=== PATIENT | female | born 1995 | race Caucasian/White ===

== ENCOUNTER 2018-08-25 16:37 | Emergency (ER) | payer OTHER ==
[2018-08-25] MEDS ORDERED: OXYMETAZOLINE 30 ML NASAL SPRAY EACHNARE ONE (17:09)
[2018-08-25] MEDS ORDERED: SILVER NITRATE APPLICATOR 1 APPL TP ONE (17:09)
[2018-08-25] MEDS ORDERED: LET GEL TOPICAL 1 EA SYR TP ONE (17:09)
--- NOTE | 2018-08-25 17:11 | EDPHY ---
H & P Time Seen by Provider: 08/25/18 16:55 HPI/ROS: CHIEF COMPLAINT: Recurrent epistaxis right-sided HISTORY OF PRESENT ILLNESS: 22-year-old otherwise healthy female, no vasculopathy history, history of recurrent epistaxis, in the ER complaining of recurrent epistaxis right side today, currently hemostatic. No dizziness. No fever no chills. No digital trauma. No unusual bleeding, bruising, no gingival bleeding. PHYSICAL EXAM (Prior to examination, patient consented to physical exam, hands were washed and my usual and customary physical exam procedures followed) 1) GENERAL: Well-developed, well-nourished, alert and oriented. Appears to be in no acute distress. 2) HEAD: Normocephalic 3) HEENT: sclera anicteric. Area of friability right Kiesselbach's plexus noted. Left side clear. 4) LUNGS: Breathing comfortably. [ Smoking Status: Never smoked Constitutional: Initial Vital Signs Temperature (C) 36.9 C 08/25/18 16:40 Heart Rate 78 08/25/18 16:40 Respiratory Rate 18 08/25/18 16:40 Blood Pressure 105/74 08/25/18 16:40 O2 Sat (%) 96 08/25/18 16:40 O2 Delivery Mode Room Air Allergies/Adverse Reactions: No Known Allergies Allergy (Unverified 08/25/18 16:40) Home Medications: Medication Instructions Recorded Lamotrigine 08/25/18 MDM/Departure - MDM Procedures: Procedure: Epistaxis control. Indication: Recurrent nosebleed not controlled by direct pressure. Risks, benefits, alternatives discussed with patient and consent obtained. The right nares was anesthetized with LAT. The anterior epistaxis was identified. The patient was treated with silver nitrate cautery with the resultant breakthrough bleeding. Subsequently TXA pledget was placed resulting in hemostasis. Following the procedure the patient was re-examined and the bleeding was well controlled. The patient tolerated the procedure well. The procedure was performed by myself. At discharge the patient's nose is hemostatic. Medications Given: Discontinued Medications Oxymetazoline HCl (Afrin Nasal [place]) 2 sprays EACHNARE EDNOW ONE Stop: 08/25/18 17:10 Last Admin: 08/25/18 18:09 Dose: 1 btl Silver Nitrate/Potassium Nitrate (Silver Nitrate Applicator) 3 each TP EDNOW ONE Stop: 08/25/18 17:10 Last Admin: 08/25/18 18:10 Dose: 3 each Tetracaine/Epinephrine/Lidocaine (Let Gel Topical) 1 ea TP EDNOW ONE Stop: 08/25/18 17:10 Last Admin: 08/25/18 18:09 Dose: 1 ea Tranexamic Acid (Cyklokapron) 500 mg TP EDNOW ONE Stop: 08/25/18 17:57 Last Admin: 08/25/18 18:10 Dose: 500 mg ED Course/Re-evaluation: 557 p.m.: Initial attempts silver nitrate cautery unsuccessful the patient breakthrough bleeding. 6:39 p.m.: Patient remains hemostatic. Plan will be discharge. Given my usual and customary epistaxis precautions and instructions. She feels comfortable being discharged. Care of patient under supervision of secondary supervising physician Dr Jenkins . - Depart Disposition: Home, Routine, Self-Care Clinical Impression: Epistaxis, recurrent Condition: Good Instructions: Nosebleed (ED) Additional Instructions: If you develop further episodes of nosebleed, place direct pressure for 20 minutes. If the bleeding continues, seek medical attention. Do not blow your nose, do not pick your nose, avoid bearing down. Referrals: Gisela Valadez MD [Medical Doctor] - 08/28/18
[2018-08-25] MEDS ORDERED: TRANEXAMIC ACID 1,000 MG/10 ML VIAL TP ONE (17:56)
[2018-08-25 18:50] VITALS: BP 114/72
== END 2018-08-25 18:50 | disposition home or self-care (01) ==
PROC: 3E09XTZ Introduction of Destructive Agent into Nose, External Approach (ICD-10-PCS; principal; 2018-08-25)
DX: R04.0 Epistaxis (principal)